=== PATIENT | male | born 1965 | race Caucasian/White ===

== ENCOUNTER 2017-05-15 14:52 | Emergency (ER) | payer OTHER ==
[~2017-05-15] VITALS: Ht 167.6 cm; Wt 79.0 kg
[~2017-05-15 14:52] MED LIST: ACET325C PO; CLIN-73 PO; CYCL-319 PO; IBUP-1542 PO; NO MEDS
[2017-05-15 14:56] VITALS: Ht 167.6 cm; Wt 79.0 kg
--- NOTE | 2017-05-15 18:17 | RADRPT ---
PROCEDURE: CT of the paranasal sinuses CLINICAL INDICATION: Sinus pain TECHNIQUE: Using a [employer] light speed [address] scanner, multiple 2.5 mm axial images of the paranas al sinuses were obtained without contrast. Coronal and sagittal reformatted images were provided. Images were reviewed on a high-resolution PACS workstation. The CTDI vol is 23.78 mGy and the DLP i s 400.03 mGy-cm. COMPARISON: None FINDINGS: Complete opacification of the left maxillary sinus is seen. The opacified left maxillary sinus demo nstrates near water attenuation. Erosion through the anterior wall of the left maxillary sinus is s een into the left premaxillary space as well as into the nasal cavity which obstructs the a left garrick al cavity. Erosion of the adjacent maxilla is seen. In addition, scalloping of the bony left maxill deanne sinus arias is seen. Mild mucosal thickening in the right maxillary sinus is seen. The remaini ng paranasal sinuses are well pneumatized. No air-fluid levels are seen. The right ostiomeatal uni t and bilateral frontal recesses are patent. The left ostiomeatal unit is obstructed. The nasal sep andres is deviated to the left side. The remainder of the nasal cavity is otherwise unremarkable. Pro ptosis of the right globe is seen. The globes and orbits are otherwise intact. The mastoid air tess ls are clear. The remaining osseous structures are well mineralized. IMPRESSION: 1. Complete opacification of the left maxillary sinus which is near water attenuation with erosive changes as described above. Further evaluation with a contrast-enhanced MRI is suggested. 2. Obstructive right ostiomeatal unit. 3. Leftward nasal septal deviation. 4. Proptosis of the right globe. RPTAT: HPNM Physician Fer Date Time Electronically viewed and signed by Physician Fer on 05/15/2017 18:16 /
[2017-05-15] MEDS ORDERED: CLIN-73 PO (18:50)
--- NOTE | 2017-05-15 18:58 | ERA ---
ER Documentation Chief Complaint Date/Time DATE: 05/15/17 TIME: 18:52 Chief Complaint left NOstril PAIN X 5 DAYS HPI 52-year-old male presenting with chief complaints of left facial swelling. Similar symptoms 1 year ago. Was diagnosed with a dental issue, since the dentist, dentist sent back to emergency room for referral to ENT/surgery. Patient was never reevaluated. States his symptoms subsided with antibiotic use. Denies any medical conditions. Denies fever, chills, headache, difficulty breathing, chest pain, nausea, vomiting, diarrhea, constipation, ear discomfort, change in vision. Has not taken any medications to relieve the symptoms. Patient has no other complaints and describes no other associated manifestations. Nursing notes have been reviewed and are consistent with history given. ROS All systems reviewed and are negative except as per history of present illness. Medications Home Meds Active Scripts Clindamycin Hcl* (Clindamycin Hcl*) 300 Mg Capsule, 300 MG PO TID for 14 Days, CAP Prov:CARRI ARIZMENDI PA-C 05/15/17 Acetaminophen (Acetaminophen) 325 Mg Capsule, 325 MG PO Q4, #30 CAP Prov:FORDEMMA DO 07/16/16 Ibuprofen* (Ibuprofen*) 600 Mg Tablet, 600 MG PO Q8, #30 TAB Prov:FORDEMMA 07/16/16 Clindamycin Hcl* (Clindamycin Hcl*) 300 Mg Capsule, 300 MG PO Q6 for 10 Days, CAP Prov:[facility] 07/16/16 Cyclobenzaprine Hcl* (Cyclobenzaprine Hcl*) 10 Mg Tablet, 5 MG PO TID for 10 Days, TAB Prov:LENNY SORIANO PA-C 06/21/15 Reported Medications [No Meds] No Conflict Check 08/28/10 Allergies Allergies: Coded Allergies: No Known Allergies (Verified Allergy, Mild, 08/28/10) PMhx/Soc Medical and Surgical Hx: pt denies Medical Hx, pt denies Surgical Hx History of Surgery: No Anesthesia Reaction: No Hx Neurological Disorder: No Hx Respiratory Disorders: No Hx Cardiac Disorders: No Hx Psychiatric Problems: No Hx Miscellaneous Medical Probl: No Hx Alcohol Use: No Hx Substance Use: No Hx Tobacco Use: Yes Smoking Status: Current every day smoker Physical Exam Vitals Vital Signs Date Time Temp Pulse Resp B/P Pulse Ox O2 Delivery O2 Flow Rate FiO2 05/15/17 14:56 99.2 88 20 136/85 96 Physical Exam Const: Disheveled 52-year-old male in no acute distress. Head: Atraumatic. Facial swelling just inferior to the left zygomatic bone extending to the upper lip. Mild tenderness to palpation. No discharge, warmth or induration or fluctuance noted. Eyes: Jaundice bilaterally ENT: Normal External Ears and Mouth. Neck: Full range of motion..~ No meningismus. Resp: Clear to auscultation bilaterally Cardio: Regular rate and rhythm, no murmurs Abd: Soft, non tender, non distended. Normal bowel sounds. Liver nonpalpable. Skin: No petechiae or rashes Back: No midline or flank tenderness Ext: No cyanosis, or edema Neur: Awake and alert Psych: Normal Mood and Affect Procedures/MDM Patient is a 52-year-old male presenting for reevaluation after 1 year of facial swelling. Symptoms started to recur 4 days ago. Mildly tender to palpation. CT was obtained, read by the radiologist, given the following impression: 1. Complete opacification of the left maxillary sinus which is near water attenuation with erosive changes as described above. Further evaluation with a contrast-enhanced MRI is suggested. 2. Obstructive right ostiomeatal unit. 3. Leftward nasal septal deviation. 4. Proptosis of the right globe. Most likely diagnosis is left facial swelling versus sinusitis. Patient will be managed with clindamycin p.o. 3 times daily 14 days. I suggested ibuprofen/ acetaminophen for discomfort. Of little suspicion for orbital cellulitis, cavernous sinus thrombosis, meningitis, or other serious bacterial infections. I presented the case to my attending Dr. Moreno who agrees with the assessment and plan. I have spoke with the patient regarding their condition and future management. They have verbally responded that they understand their status and treatment plan. The patients vitals are stable, and their current condition is appropriate for discharge. The patient will be given discharge instructions with return precautions. Departure Diagnosis: Primary Impression: Sinusitis Qualified Code: J01.01 - Acute recurrent maxillary sinusitis Additional Impression: Left facial swelling Condition: Stable Patient Instructions: Understanding Your Sinuses Additional Instructions: Follow-up with ENT in the next 1-3 days for more thorough evaluation. Return the the emergency department immediately if symptoms worsen or change. If you have any questions regarding medications, ask your pharmacist or us before you leave. If any adverse reactions occur while taking your medications, discontinue the treatment and return to the emergency department immediately. Take your medications as directed, and complete the entire course of treatment. CARRI ARIZMENDI PA-C May 15, 2017 18:58
== END 2017-05-15 19:00 | disposition home or self-care (01) ==
LOC: FTE 14:52
DX: J01.01 Acute recurrent maxillary sinusitis (principal); F17.210 Nicotine dependence, cigarettes, uncomplicated
CPT/HCPCS: 70486; Z7502